=== PATIENT | female | born 1995 | race Hispanic/Latino ===

== ENCOUNTER 2021-05-30 13:40 | Inpatient (IN) | payer SELFPAY ==
[~2021-05-30] VITALS: Ht 157.5 cm; Wt 122.1 kg
[2021-05-30 13:51] VITALS: BP 113/68
[2021-05-30 16:02] VITALS: BP 108/70
[2021-05-30 16:11] LABS: BASOPHILS % (AUTO) 0.6 % (0.0-5.0); EOSINOPHILS % (AUTO) 1.8 % (0.0-8.0); HEMATOCRIT 40.1 % (36-48); LYMPHOCYTES % (AUTO) 33.7 % (21.0-51.0); MEAN CORPUSCULAR HEMOGLOBIN 29.7 pg (27.0-33.0); MEAN CORPUSCULAR HGB CONC 33.7 g/dL (32.0-36.0); MEAN CORPUSCULAR VOLUME 88.3 fL (79-99); MONOCYTES % (AUTO) 6.6 % (3.0-13.0); NEUTROPHILS % (AUTO) 56.6 % (40.0-77.0); PLATELET COUNT (AUTO) 418 K/uL (130-400); RED BLOOD CELL COUNT(AUTO) 4.54 MIL/uL (4.00-5.50); RED CELL DISTRIBUTION WIDTH 12.9 % (11.0-15.5)
[2021-05-30 16:15] LABS: CREATININE 0.7 mg/dL (0.5-1.5); POTASSIUM 3.7 mmol/L (3.5-5.1)
[2021-05-30 16:19] LABS: ALBUMIN 3.4 g/dL (3.5-5.0); BILIRUBIN,TOTAL 0.3 mg/dL (0.2-1.0); TOTAL PROTEIN, SERUM 7.6 g/dL (6.0-8.3)
[2021-05-30 16:40] LABS: APPEARANCE,URINE Clear (CLEAR); BILIRUBIN,URINE Negative (NEGATIVE); COLOR,URINE Yellow (YELLOW); GLUCOSE, URINE (UA) Negative (NEGATIVE); KETONES,URINE Negative (NEGATIVE); LEUKOCYTE ESTERASE ,URINE Negative (NEGATIVE); NITRATE,URINE Negative (NEGATIVE); OCCULT BLOOD,URINE Negative (NEGATIVE); PROTEIN,URINE Negative (NEGATIVE)
[2021-05-30] MEDS ORDERED: TETANUS/DIPHTHERIA TOXOID [ADULT] 0.5 ML VIAL IM ONE (17:00)
[2021-05-30] MEDS ORDERED: VANCOMYCIN 1G VIAL IVPB ONE (17:00)
[2021-05-30] MEDS ORDERED: ZOSYN 3.375GM+NS 50ML 3.38 GM in 0.9%NACL 50ML 50 ML IV SCH (17:00)
[2021-05-30 17:05] VITALS: BP 130/81
[2021-05-30] MEDS ORDERED: VANCOMYCIN 1G/250ML KIT 250 ML IV ONE (17:30)
[2021-05-30] MEDS: ZOSYN 3.375GM +NS 50ML IV SCH (18:08)
[2021-05-30 20:18] VITALS: BP 121/80
[2021-05-30] MEDS ORDERED: VANCOMYCIN PROTOCOL PER PHARMACY IV PRN (22:30)
[2021-05-30] MEDS ORDERED: ONDANSETRON 4MG INJ IV PRN (22:30)
[2021-05-30] MEDS: LACTATED RINGERS 1000ML 1,000 ML IV SCH (22:58)
[2021-05-31] VITALS (20 sets, daily range): BP systolic 106–139; BP diastolic 56–85
[2021-05-31] MEDS ORDERED: 0.9%NACL 50ML 50 ML IV ONE (01:30)
[2021-05-31] MEDS: ZOSYN 3.375GM +NS 50ML IV SCH (01:33)
[2021-05-31] MEDS ORDERED: ZOSYN 3.375GM+NS 50ML 50 ML IV SCH (05:00)
[2021-05-31 05:35] LABS: CREATININE 0.8 mg/dL (0.5-1.5); PHOSPHORUS 3.9 mg/dL (2.5-4.9); POTASSIUM 4.3 mmol/L (3.5-5.1)
[2021-05-31 06:08] LABS: BASOPHILS % (AUTO) 0.5 % (0.0-5.0); EOSINOPHILS % (AUTO) 1.7 % (0.0-8.0); HEMATOCRIT 38.8 % (36-48); LYMPHOCYTES % (AUTO) 35.1 % (21.0-51.0); MONOCYTES % (AUTO) 7.7 % (3.0-13.0); NEUTROPHILS % (AUTO) 54.3 % (40.0-77.0); PLATELET COUNT (AUTO) 293 K/uL (130-400); RED BLOOD CELL COUNT(AUTO) 4.41 MIL/uL (4.00-5.50); WHITE BLOOD COUNT (AUTO) 11.3 K/uL (4.8-10.8)
[2021-05-31] MEDS ORDERED: COMPOUND IV REFRIGERATED 1 EACH IVSOLN MISC PRN (06:30)
[2021-05-31] MEDS: LACTATED RINGERS 1000ML 1,000 ML IV SCH ×4 (07:52→20:36)
[2021-05-31] MEDS: FAMOTIDINE 20MG VIAL IV SCH (08:25)
[2021-05-31] MEDS: ZOSYN 3.375GM+NS 50ML 50 ML IV SCH ×3 (08:36→20:16)
[2021-05-31] MEDS: VANCOMYCIN 1.25GM/NS 250ML IVPB SCH ×4 (09:18→20:17)
[2021-05-31] MEDS: MORPHINE 4 MG SYG IV PRN (13:59)
[2021-05-31] MEDS ORDERED: LIDOCAINE PF 100MG/5ML (2%) SYRINGE 5ML ONE (16:03)
[2021-05-31] MEDS ORDERED: DEXAMETHASONE SOD PHOSPHATE 10MG/ML 1ML VIAL ONE (16:03)
[2021-05-31] MEDS ORDERED: SUCCINYLCHOLINE 200MG/10ML SYR ONE (16:03)
[2021-05-31] MEDS ORDERED: MEPERIDINE-PF 25 MG/ML SYG ONE (16:04)
[2021-05-31] MEDS ORDERED: FENTANYL CITRATE PF 50 MCG/1 ML 2ML VIAL ONE (16:04)
[2021-05-31] MEDS ORDERED: MIDAZOLAM HCL 1 MG/ML 2ML VIAL ONE (16:04)
[2021-05-31] MEDS ORDERED: PROPOFOL 10 MG/ML 20ML VIAL IV ONE (16:04)
[2021-05-31] MEDS ORDERED: ONDANSETRON 4MG INJ ONE (16:04)
[2021-05-31] MEDS ORDERED: LIDOCAINE HCL 1% 20 ML VIAL ONE (16:05)
[2021-05-31] MEDS ORDERED: BUPIVACAINE/PF 0.25% 30ML VIAL IJ ONE (16:05)
[2021-05-31] MEDS ORDERED: 0.9%NACL 1000ML 1,000 ML IV ONE (23:30)
[2021-06-01 03:43] VITALS: BP 110/67
[2021-06-01] MEDS: ZOSYN 3.375GM+NS 50ML 50 ML IV SCH ×3 (04:35→20:03)
[2021-06-01 05:25] LABS: BASOPHILS % (AUTO) 0.2 % (0.0-5.0); HEMATOCRIT 39.2 % (36-48); LYMPHOCYTES % (AUTO) 14.3 % (21.0-51.0); MEAN CORPUSCULAR HEMOGLOBIN 29.1 pg (27.0-33.0); MEAN CORPUSCULAR HGB CONC 33.7 g/dL (32.0-36.0); MEAN CORPUSCULAR VOLUME 86.5 fL (79-99); MONOCYTES % (AUTO) 1.5 % (3.0-13.0); NEUTROPHILS % (AUTO) 83.1 % (40.0-77.0); PLATELET COUNT (AUTO) 385 K/uL (130-400); RED BLOOD CELL COUNT(AUTO) 4.53 MIL/uL (4.00-5.50); RED CELL DISTRIBUTION WIDTH 12.7 % (11.0-15.5); WHITE BLOOD COUNT (AUTO) 12.6 K/uL (4.8-10.8)
[2021-06-01 05:53] LABS: CREATININE 0.6 mg/dL (0.5-1.5); POTASSIUM 4.3 mmol/L (3.5-5.1)
[2021-06-01 08:00] VITALS: BP 106/67
[2021-06-01] MEDS: FAMOTIDINE 20MG VIAL IV SCH (08:18)
[2021-06-01] MEDS: MORPHINE 4 MG SYG IV PRN ×2 (08:18→13:40)
[2021-06-01] MEDS: VANCOMYCIN 1.25GM/NS 250ML IVPB SCH ×4 (08:19→20:03)
[2021-06-01 11:23] VITALS: BP 117/73
[2021-06-01] MEDS: LACTATED RINGERS 1000ML 1,000 ML IV SCH (12:51)
[2021-06-01 17:07] VITALS: BP 123/79
[2021-06-01 20:00] VITALS: BP 117/74
[2021-06-01] MEDS: VANCOMYCIN 1G 1.75 GM in 0.9% NACL 250ML 250 ML IVPB SCH (21:00)
[2021-06-01 23:30] VITALS: BP 117/69
[2021-06-02 03:44] VITALS: BP 140/67
[2021-06-02] MEDS: ZOSYN 3.375GM+NS 50ML 50 ML IV SCH (04:22)
[2021-06-02] MEDS: LACTATED RINGERS 1000ML 1,000 ML IV SCH (04:22)
[2021-06-02 07:58] LABS: BASOPHILS % (AUTO) 0.4 % (0.0-5.0); EOSINOPHILS % (AUTO) 0.3 % (0.0-8.0); HEMATOCRIT 38.6 % (36-48); LYMPHOCYTES % (AUTO) 30.4 % (21.0-51.0); MEAN CORPUSCULAR HEMOGLOBIN 29.1 pg (27.0-33.0); MEAN CORPUSCULAR HGB CONC 33.2 g/dL (32.0-36.0); MEAN CORPUSCULAR VOLUME 87.7 fL (79-99); MONOCYTES % (AUTO) 7.4 % (3.0-13.0); NEUTROPHILS % (AUTO) 60.8 % (40.0-77.0); PLATELET COUNT (AUTO) 373 K/uL (130-400); RED CELL DISTRIBUTION WIDTH 13.2 % (11.0-15.5); WHITE BLOOD COUNT (AUTO) 15.1 K/uL (4.8-10.8)
[2021-06-02 08:00] VITALS: BP 108/64
[2021-06-02 08:15] LABS: ALBUMIN 3.4 g/dL (3.5-5.0); BILIRUBIN,TOTAL 0.4 mg/dL (0.2-1.0); CREATININE 0.7 mg/dL (0.5-1.5); POTASSIUM 3.8 mmol/L (3.5-5.1); TOTAL PROTEIN, SERUM 7.4 g/dL (6.0-8.3)
[2021-06-02] MEDS: FAMOTIDINE 20MG VIAL IV SCH (08:35)
[2021-06-02] MEDS: VANCOMYCIN 1G 1.75 GM in 0.9% NACL 250ML 250 ML IVPB SCH (08:36)
[2021-06-02] MEDS ORDERED: LEVO750T46 PO (10:22)
[2021-06-02] MEDS ORDERED: ACET1TAB25 PO (10:22)
[2021-06-02] MEDS ORDERED: ACETAMINOPHEN WITH CODEINE 1 TAB TAB PO SCH (10:30)
[2021-06-02 12:00] VITALS: BP 117/69
== END 2021-06-02 14:00 | disposition home or self-care (01) | DRG 584 ==
LOC: EDH 13:40 → EDHIP 13:41 → 3BH 05-31 10:08
PROVIDERS: ADMIT Internal Medicine; ATTEND Internal Medicine
PROC: 3E0234Z Introduction of Serum, Toxoid and Vaccine into Muscle, Percutaneous Approach (ICD-10-PCS; 2021-05-30)
PROC: 0H9T0ZZ Drainage of Right Breast, Open Approach (ICD-10-PCS; principal; 2021-05-31 16:12)
DX: N61.1 Abscess of the breast and nipple (principal); Z68.42 Body mass index [BMI] 45.0-49.9, adult; E66.01 Morbid (severe) obesity due to excess calories; Z20.822 Contact with and (suspected) exposure to COVID-19; Z82.49 Family history of ischemic heart disease and other diseases of the circulatory system; Z23 Encounter for immunization; Z83.3 Family history of diabetes mellitus; Z82.5 Family history of asthma and other chronic lower respiratory diseases
CPT/HCPCS: 36415; 76642; 80048; 80053; 80202; 81003; 81025; 82550; 83735; 84100; 85025; 86850; 86900; 86901; 87040; 87070; 87076; 87077; 87088; 87186; 87205; 87635; 90714; A6266; C9803; G0378; J0330; J1100; J2001; J2175; J2250; J2270; J2405; J2543; J2704; J3010; J3370; J3490; J7050; J7120